=== PATIENT | female | born 2000 | race Caucasian/White ===

== ENCOUNTER 2023-02-26 08:27 | Outpatient (CLI) | payer OTHER ==
--- NOTE | 2023-02-28 12:12 | MRI Report ---
PROCEDURE: HIP WO - RT INDICATIONS: RIGHT HIP PAIN TECHNIQUE: Noncontrast coronal T1 spin echo and STIR through the bony pelvis. Coronal and axial T2 fast spin ec ho with fat saturation, sagittal T1 spin echo, and oblique axial T2 fast spin echo with fat saturatio n through the hip. COMPARISON: None. FINDINGS: Image quality: Excellent. Bones and joints: Bone marrow of the pelvic ring and proximal femurs show normal signal throughout. No intraosseous lesions or fractures. No avascular necrosis of the femoral heads. The visualized l ower lumbar spine appears normally aligned. Tendons: The gluteus medius and minimus tendons appear intact, without associated muscle atrophy. T he iliopsoas tendon appears intact, without adjacent bursal fluid collections. The origin of the ham string tendon is intact at the ischial tuberosity. Labrum and cartilage: The acetabular labrum appears intact in the absence of intra-articular contras t. Cartilage surface of the femoral head appears of normal thickness. The alpha angle of the femur is within normal limits at less than 55 degrees. Soft tissues: Visualized muscles demonstrate normal bulk and internal signal. The proximal sciatic neurovascular bundle appears normal adjacent to the hamstring tendons. No free pelvic fluid. Bladde r wall thickness is normal. Genitourinary structures and bowel loops appear normal where visualized. IMPRESSION: Negative evaluation of the right hip. Reviewed by: Paddy Johnson MD on 02/28/2023 12:10 PM PDT Approved by: Paddy Johnson MD on 02/28/2023 12:10 PM PDT Station ID: [id number]
== END 2023-02-26 08:28 | disposition home or self-care (01) ==
LOC: DI 08:27
DX: M25.551 Pain in right hip (principal)